=== PATIENT | male | born 1985 | race African-American/Black ===

== ENCOUNTER 2021-07-17 07:51 | Inpatient (IN) | payer SELFPAY ==
[~2021-07-17] VITALS: Ht 172.7 cm; Wt 78.5 kg
[2021-07-17] MEDS ORDERED: ONDANSETRON HCL 4MG/2ML INJ IV NR (08:20)
[2021-07-17] MEDS ORDERED: MORPHINE SULFATE 4 MG/ML CPJ (NOT FOR IM USE) IV NR (08:20)
[2021-07-17] MEDS ORDERED: PANTOPRAZOLE SODIUM 40 MG/VIAL IV NR (08:20)
[2021-07-17] MEDS ORDERED: MAGNESIUM/ALUMINUM HYDROXIDE/SIMETHICONE 30ML UDC PO NR (08:20)
[2021-07-17] MEDS: SODIUM CHLORIDE 0.9% 1,000 ML IV NR ×2 (08:30→12:07)
[2021-07-17 08:33] LABS: HEMATOCRIT. 49.3 % (42.0-52.0); MEAN CORPUSCULAR VOLUME 108.2 fL (80.0-94.0); MEAN PLATELET VOLUME 8.1 fl (7.4-10.4); PLATELET 281 x1000/uL (130-400); RED BLOOD CELL COUNT 4.56 mill/uL (4.7-6.1); RED CELL DISTRIBUTION WIDTH 14.9 % (11.6-14.6)
[2021-07-17 08:38] LABS: CHLORIDE 104 mEq/L (98-107)
[2021-07-17 09:05] LABS: PROTHROMBIN TIME 10.3 sec (9.6-11.0)
[2021-07-17 09:12] LABS: PLATELET ESTIMATE NORMAL
[2021-07-17] MEDS ORDERED: PIPERACILLIN/TAZOBACTAM 3.375GM/50ML PREMIX IV NR (09:15)
[2021-07-17] MEDS ORDERED: FOLIC ACID 1 MG, THIAMINE HCL 100 MG, MVI, ADULT NO.1 10 ML in DEXTROSE 5% WATER 1,000 ML IV ONE (09:30)
[2021-07-17] MEDS ORDERED: DEXT 5%/0.9% NACL 1,000 ML IV ONE (09:30)
[2021-07-17] MEDS ORDERED: ALBUTEROL (0.083%) 2.5MG/3ML NEB HHN SCH (09:30)
[2021-07-17] MEDS ORDERED: SODIUM CHLORIDE 0.9% 1,000 ML IV NR (09:30)
[2021-07-17] MEDS ORDERED: IOHEXOL-300 100 ML BOTTLE ONE (09:37)
[2021-07-17] MEDS ORDERED: CALCIUM GLUCONATE 100MG/ML 10ML VIAL IV SCH (10:00)
[2021-07-17 10:31] LABS: BG BASE EXCESS -18.8 mmol/L (-2.0-2.0); BG CARBOXYHEMOGLOBIN 0.3 % (0.5-1.5); BG DEOXYHEMOGLOBIN 0.6 % (0.0-5.0); BG FRACTION INSPIRED OXYGEN 60; BG HCO3 ACT 6.3 mmol/L (22.0-26.0); BG METHEMOGLOBIN 0.4 % (0.0-1.5); BG OXYGEN SATURATION 99.4 % (92.0-98.5); BG OXYHEMOGLOBIN 98.7 % (94.0-97.0); BG PCO2 15.9 mmHg (35.0-45.0); BG PH 7.216 (7.350-7.450); BG PO2 210.6 mmHg (75.0-100.0); BG SAMPLE SITE LEFT BRACHIAL; BG TOTAL HEMOGLOBIN 15.2 g/dL (12.0-18.0); BG VENT MODE MASK TREATMENT
[2021-07-17 10:35] LABS: CLARITY URINE CLEAR (CLEAR); COLOR URINE YELLOW (YELLOW); KETONES URINE 3+ (NEGATIVE); LEUKOCYTE ESTERASE URINE NEGATIVE (NEGATIVE); NITRITE URINE NEGATIVE (NEGATIVE); OCCULT BLOOD URINE 1+ (NEGATIVE); PROTEIN URINE 1+ (NEGATIVE); SPECIFIC GRAVITY URINE 1.029 (1.005-1.030); UROBILINOGEN URINE 0.2 E.U./dL (0.2-1.0)
[2021-07-17 10:51] LABS: CREATINE KINASE 226 IU/L (39-308)
[2021-07-17] MEDS ORDERED: MORPHINE SULFATE 4 MG/ML CPJ (NOT FOR IM USE) IV ONE (12:00)
[2021-07-17] MEDS ORDERED: SODIUM CHLORIDE 0.9% 1,000 ML IV ONE (13:00)
[2021-07-17] MEDS ORDERED: LORAZEPAM 2MG/ML CPJ IV PRN (15:00)
[2021-07-17] MEDS ORDERED: CLONIDINE 0.1MG TABLET PO PRN (15:00)
[2021-07-17] MEDS ORDERED: HYDROMORPHONE HCL/PF 2MG/ML CPJ IV PRN (15:00)
[2021-07-17] MEDS ORDERED: ACETAMINOPHEN 325MG TABLET PO PRN ×2 (15:00)
[2021-07-17] MEDS ORDERED: NALOXONE HCL 0.4MG/ML VIAL IV PRN (15:00)
[2021-07-17] MEDS ORDERED: CHLORDIAZEPOXIDE 5 MG CAPSULE PO SCH (15:00)
[2021-07-17] MEDS ORDERED: IPRATROPIUM/ALBUTEROL 0.5-3(2.5)MG/3ML NEB HHN PRN (15:00)
[2021-07-17] MEDS ORDERED: ONDANSETRON HCL 4MG/2ML INJ IV PRN (15:00)
[2021-07-17] MEDS ORDERED: DOCUSATE SODIUM 100MG CAPSULE PO PRN (15:00)
[2021-07-17 16:00] VITALS: BP 140/60
[2021-07-17 16:15] VITALS: BP 140/86
[2021-07-17 16:20] VITALS: BP 140/86
[2021-07-17 17:11] LABS: CHLORIDE 111 mEq/L (98-107)
[2021-07-17] MEDS: CEFTRIAXONE 1,000 MG in DEXTROSE 5% WATER 50 ML IV SCH (17:25)
[2021-07-17] MEDS: PANTOPRAZOLE SODIUM 40 MG/VIAL IV SCH (17:26)
[2021-07-17] MEDS: SODIUM CHLORIDE 0.9% 1,000 ML IV SCH ×2 (17:26→23:57)
[2021-07-17 17:32] LABS: FOLIC ACID (FOLATE) SERUM >20 ng/mL ng/mL (>5.38)
[2021-07-17 17:43] LABS: VITAMIN B12 SERUM >2000 pg/mL pg/mL (211-911)
[2021-07-17 17:58] LABS: HEPATITIS B SURFACE ANTIGEN NEGATIVE
[2021-07-17 18:35] VITALS: BP 153/88
[2021-07-17] MEDS: CHLORDIAZEPOXIDE 5 MG CAPSULE PO SCH (18:56)
[2021-07-17] MEDS: HYDROMORPHONE HCL/PF 2MG/ML CPJ IV PRN ×2 (19:38→23:54)
[2021-07-17 20:00] VITALS: BP 157/92
[2021-07-17] MEDS: LORAZEPAM 2MG/ML CPJ IV PRN (21:43)
[2021-07-18] VITALS: BP 149/89
[2021-07-18] MEDS: CHLORDIAZEPOXIDE 5 MG CAPSULE PO SCH ×3 (02:13→19:37)
[2021-07-18 04:00] VITALS: BP 146/97
[2021-07-18] MEDS: HYDROMORPHONE HCL/PF 2MG/ML CPJ IV PRN ×4 (04:46→21:15)
[2021-07-18 06:53] LABS: HEMATOCRIT. 38.5 % (42.0-52.0); HEMOGLOBIN. 12.9 g/dL (14.0-18.0); MEAN CORPUSCULAR HEMOGLOBIN 34.3 pg (28.0-32.0); MEAN CORPUSCULAR VOLUME 102.5 fL (80.0-94.0); MEAN PLATELET VOLUME 7.7 fl (7.4-10.4); PLATELET 200 x1000/uL (130-400); RED BLOOD CELL COUNT 3.75 mill/uL (4.7-6.1); RED CELL DISTRIBUTION WIDTH 13.9 % (11.6-14.6)
[2021-07-18 07:03] LABS: CHLORIDE 108 mEq/L (98-107)
[2021-07-18 07:14] LABS: PHOSPHORUS 1.2 mg/dL (2.5-4.9)
[2021-07-18 08:00] VITALS: BP 128/86
[2021-07-18] MEDS: MULTIVITAMINS,THER W-MINERALS TABLET PO SCH (08:47)
[2021-07-18] MEDS: PANTOPRAZOLE SODIUM 40 MG/VIAL IV SCH ×2 (08:47→16:26)
[2021-07-18] MEDS: THIAMINE HCL 100MG TABLET PO SCH (08:48)
[2021-07-18] MEDS: SODIUM CHLORIDE 0.9% 1,000 ML IV SCH ×2 (08:48→17:31)
[2021-07-18] MEDS: FOLIC ACID 1MG TABLET PO SCH (08:48)
[2021-07-18 11:00] LABS: PLATELET ESTIMATE NORMAL
[2021-07-18 12:00] VITALS: BP 145/107
[2021-07-18] MEDS ORDERED: ZOLPIDEM TARTRATE 5MG TABLET PO PRN (15:45)
[2021-07-18 16:00] VITALS: BP 153/101
[2021-07-18] MEDS: CEFTRIAXONE 1,000 MG in DEXTROSE 5% WATER 50 ML IV SCH (16:12)
[2021-07-18] MEDS: POTASSIUM-SODIUM PHOSPHATE POWDER PACKET PO SCH ×2 (16:18→21:15)
[2021-07-18] MEDS ORDERED: POTASSIUM PHOS,M-BASIC-D-BASIC 30 MMOL in SODIUM CHLORIDE 0.9% 500 ML IV NR (17:00)
[2021-07-18 20:00] VITALS: BP 158/100
[2021-07-18] MEDS: LORAZEPAM 2MG/ML CPJ IV PRN (22:04)
[2021-07-19] VITALS: BP 120/62
[2021-07-19] MEDS: SODIUM CHLORIDE 0.9% 1,000 ML IV SCH ×3 (03:24→21:50)
[2021-07-19 04:00] VITALS: BP 141/94
[2021-07-19] MEDS: HYDROMORPHONE HCL/PF 2MG/ML CPJ IV PRN ×4 (04:14→21:28)
[2021-07-19 04:57] LABS: BASOPHILS % 0.2 % (0.0-2.0); EOSINOPHILS % 0.3 % (0.0-5.0); HEMATOCRIT. 37.3 % (42.0-52.0); HEMOGLOBIN. 13.1 g/dL (14.0-18.0); LYMPHOCYTES % 12.1 % (20.0-50.0); MEAN CORPUSCULAR HEMOGLOBIN 35.3 pg (28.0-32.0); MEAN CORPUSCULAR VOLUME 100.9 fL (80.0-94.0); MEAN PLATELET VOLUME 7.9 fl (7.4-10.4); MONOCYTES % 13.5 % (2.0-8.0); NEUTROPHILS % 73.9 % (40.0-76.0); PLATELET 185 x1000/uL (130-400)
[2021-07-19] MEDS: CHLORDIAZEPOXIDE 5 MG CAPSULE PO SCH ×3 (04:59→20:11)
[2021-07-19 05:08] LABS: CHLORIDE 102 mEq/L (98-107)
[2021-07-19 05:23] LABS: PHOSPHORUS 2.3 mg/dL (2.5-4.9)
[2021-07-19 08:00] VITALS: BP 129/86
[2021-07-19] MEDS: FOLIC ACID 1MG TABLET PO SCH (09:00)
[2021-07-19] MEDS: POTASSIUM-SODIUM PHOSPHATE POWDER PACKET PO SCH ×2 (09:00→17:02)
[2021-07-19] MEDS: THIAMINE HCL 100MG TABLET PO SCH (09:00)
[2021-07-19] MEDS: MULTIVITAMINS,THER W-MINERALS TABLET PO SCH (09:00)
[2021-07-19] MEDS: PANTOPRAZOLE SODIUM 40 MG/VIAL IV SCH ×2 (09:01→17:02)
[2021-07-19] MEDS: LORAZEPAM 2MG/ML CPJ IV PRN (10:21)
[2021-07-19] MEDS ORDERED: POTASSIUM CHLORIDE 20MEQ TABLET SR PO SCH (11:30)
[2021-07-19 12:00] VITALS: BP 143/93
[2021-07-19] MEDS ORDERED: POTASSIUM PHOS,M-BASIC-D-BASIC 15 MMOL in DEXT 5% WATER 245 ML IV SCH (13:00)
[2021-07-19] MEDS: CHLORDIAZEPOXIDE 10MG CAPSULE PO SCH ×2 (13:57→20:11)
[2021-07-19] MEDS: CEFTRIAXONE 1,000 MG in DEXTROSE 5% WATER 50 ML IV SCH (15:27)
[2021-07-19 16:00] VITALS: BP 144/106
[2021-07-19 20:00] VITALS: BP 139/97
[2021-07-20] VITALS: BP 129/85
[2021-07-20 04:00] VITALS: BP 127/83
[2021-07-20] MEDS: CHLORDIAZEPOXIDE 10MG CAPSULE PO SCH (04:17)
[2021-07-20] MEDS: CHLORDIAZEPOXIDE 5 MG CAPSULE PO SCH (04:17)
[2021-07-20 06:27] LABS: HEMATOCRIT. 36.5 % (42.0-52.0); HEMOGLOBIN. 12.9 g/dL (14.0-18.0); MEAN CORPUSCULAR HEMOGLOBIN 35.2 pg (28.0-32.0); MEAN CORPUSCULAR VOLUME 99.4 fL (80.0-94.0); MEAN PLATELET VOLUME 8.1 fl (7.4-10.4); PLATELET 199 x1000/uL (130-400); RED BLOOD CELL COUNT 3.68 mill/uL (4.7-6.1); RED CELL DISTRIBUTION WIDTH 13.6 % (11.6-14.6)
[2021-07-20] MEDS: SODIUM CHLORIDE 0.9% 1,000 ML IV SCH (06:28)
[2021-07-20 08:00] VITALS: BP 111/82
[2021-07-20 08:33] LABS: CHLORIDE 100 mEq/L (98-107)
[2021-07-20 08:40] LABS: PHOSPHORUS 3.5 mg/dL (2.5-4.9)
[2021-07-20] MEDS ORDERED: POTASSIUM CHLORIDE 20MEQ TABLET SR PO NR (09:15)
[2021-07-21 14:41] LABS: PLATELET ESTIMATE NORMAL
== END 2021-07-20 08:55 | disposition left against medical advice (07) | DRG 282 ==
LOC: ER 07:51 → 6WST 10:46 → ENRESERV 11:35
PROVIDERS: ADMIT Internal Medicine; ATTEND Internal Medicine
DX: K85.20 Alcohol induced acute pancreatitis without necrosis or infection (principal); K56.699 Other intestinal obstruction unspecified as to partial versus complete obstruction; E87.2 Acidosis; E83.39 Other disorders of phosphorus metabolism; K70.10 Alcoholic hepatitis without ascites; E87.5 Hyperkalemia; K52.9 Noninfective gastroenteritis and colitis, unspecified; Z20.822 Contact with and (suspected) exposure to COVID-19; E86.1 Hypovolemia; Y90.9 Presence of alcohol in blood, level not specified; F10.20 Alcohol dependence, uncomplicated; R80.9 Proteinuria, unspecified; Z53.29 Procedure and treatment not carried out because of patient's decision for other reasons
CPT/HCPCS: 36415; 36600; 71045; 74018; 74177; 80048; 80053; 80076; 80307; 80320; 80329; 81003; 82010; 82248; 82375; 82550; 82607; 82746; 82805; 83605; 83735; 84100; 84145; 84484; 85025; 86705; 86709; 86803; 87340; 87426; 93005; 94644; 99291; C1893; C9113; J0610; J0696; J1170; J2060; J2270; J2405; J2543; J3411; J3490; J7030; J7040; J7042; J7060; J7070; Q9967; G0480